=== PATIENT | female | born 1990 | race Caucasian/White ===

== ENCOUNTER 2016-07-24 22:16 | Emergency (ER) | payer BC ==
[2016-07-25] MEDS ORDERED: Ibuprofen TAB* 800 MG PO ONE (00:07)
[2016-07-25 00:47] VITALS: BP 118/72
--- NOTE | 2016-07-25 07:46 | RAD ---
HISTORY: Left ankle trauma COMPARISONS: None VIEWS: 3, Frontal, lateral, and oblique views of the left ankle FINDINGS: BONE DENSITY: Normal. BONES: There is a small bone fragment along the distal fibula. This appears smoothly marginated. JOINTS: There is no arthropathy. ALIGNMENT: There is no dislocation. SOFT TISSUES: Unremarkable. There is no associated soft tissue swelling along the distal fibula OTHER FINDINGS: None. IMPRESSION: SMALL BONE FRAGMENT ALONG THE DISTAL FIBULA SUGGESTIVE OF AVULSION INJURY OF UNCERTAIN ACUITY.
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
== END 2016-07-25 01:00 | disposition home or self-care (01) ==
LOC: ED 22:16
DX: S93.402A Sprain of unspecified ligament of left ankle, initial encounter (principal); W22.8XXA Striking against or struck by other objects, initial encounter; Y93.89 Activity, other specified; Y92.9 Unspecified place or not applicable
CPT/HCPCS: 99282; A9270-GY